=== PATIENT | female | born 1975 | race Caucasian/White ===

== ENCOUNTER 2016-10-07 09:20 | Day surgery (SDC) | payer OTHER ==
[~2016-10-07] VITALS: Ht 162.6 cm; Wt 85.0 kg
[~2016-10-07 09:20] MED LIST: 0.9% Sodium Chloride 1,000 ML IV SCH; ACET-171 PO; ALBU18HF INH; BACL20TA PO; BDS.4IN INH; BUDE90AE IH; CETI5TAB28 PO; CHOL500050 PO; DICY10CA56 PO; FENO160T14 PO; FLUT9.9S NS; GLPZ5T PO; HYG25 PO; INSU100V7 SUBQ; LAMO200T2 PO; LISI-567 PO; MELA5TAB14 PO; METF500T4 PO; MONT5TAB14 PO; NATA300V IV; OMEP20CA11 PO; POLY17PO6 PO; PRAV20TA2 PO; PREG225C PO; PROM25TA14 PO; RANI300T4 PO; RIVA20TA PO; SALM50DI IH; SITA100T12 PO; SUCR1TAB30 PO; Sodium Chloride LOK Flush 10 mL Syringe IV PRN; Vitamin B-12 SUBCUTA079; fentaNYL-PF 50 mCg/mL 2 mL Inj IVPUSH PRN
[2016-10-07 09:58] VITALS: BP 111/71; PULSE 101; RESP 16; O2SAT 97
[2016-10-07 10:38] VITALS: BP 106/57; PULSE 85; RESP 14; O2SAT 93
[2016-10-07 10:48] VITALS: BP 83/55; PULSE 82; RESP 12; O2SAT 92
[2016-10-07 10:58] VITALS: BP 96/65; PULSE 88; RESP 12; O2SAT 95
[2016-10-07 11:08] VITALS: BP 101/71; PULSE 95; RESP 16; O2SAT 100
--- NOTE | 2016-10-07 19:43 | ENDO ---
[address] [address] ENDOSCOPY PROCEDURE PATIENT: LUC NUGENT : 1975 MR#: [id number] ADMIT: 10/07/2016 JOB ID: [id number] DATE: 10/07/2016 OPERATION: Esophagogastroduodenoscopy. PREOPERATIVE DIAGNOSIS(ES): History of duodenal ulcer. POSTOPERATIVE DIAGNOSIS(ES): Normal upper endoscopy with completely healed prior duodenal ulcer. ANESTHESIA: 1. Fentanyl 100 mcg. 2. Versed 7 mg IV administered. COMPLICATIONS: None. BLOOD LOSS: Minimal. DESCRIPTION OF PROCEDURE: After risks and benefits were explained to the patient, informed consent was obtained. After anesthesia administered, an upper endoscope was inserted from the mouth, intubated into esophagus, stomach, second portion of duodenum. Mucosa carefully examined. After the procedure was done, the scope was withdrawn and procedure terminated. FINDINGS: Upon inspection of the esophagus, the esophagus was normal without masses, ulcers, or lesions. Z-line located at 40 cm from the incisors. Upon entering the stomach, the stomach was also normal without masses, ulcers, or lesions. Retroflexion was normal. Duodenal bulb, first and second portion were normal with complete healing of the ulcer and the duodenum. IMPRESSIONS: Normal upper endoscopy with complete healing of duodenal ulcer. RECOMMENDATIONS: Follow up in GI clinic in regards to her epigastric pain and abnormal gastric emptying study.
[2016-10-30] MEDS ORDERED: ERYT-96 PO (11:06)
== END 2016-10-07 23:59 | disposition home or self-care (01) ==
LOC: END 09:20
PROVIDERS: ATTEND Internal Medicine Gastroenterology
DX: Z09 Encounter for follow-up examination after completed treatment for conditions other than malignant neoplasm (principal); Z87.11 Personal history of peptic ulcer disease; K21.9 Gastro-esophageal reflux disease without esophagitis; D68.61 Antiphospholipid syndrome; I05.0 Rheumatic mitral stenosis; G35 Multiple sclerosis; J45.40 Moderate persistent asthma, uncomplicated; I10 Essential (primary) hypertension; E11.9 Type 2 diabetes mellitus without complications; Z79.84 Long term (current) use of oral hypoglycemic drugs; Z79.4 Long term (current) use of insulin; Z79.01 Long term (current) use of anticoagulants